=== PATIENT | male | born 1995 | race African-American/Black ===

== ENCOUNTER 2019-02-11 19:38 | Emergency (ER) | payer OTHER ==
[2019-02-11] MEDS ORDERED: DIPHTH/TETANUS/ACEL. PERTUSSIS IM ONLY ONE (20:00)
--- NOTE | 2019-02-11 20:06 | ER Report ---
History and Physical Time Seen By MD: 19:55 Hx. of Stated Complaint: CUT HAND ON GLASS HPI/ROS CHIEF COMPLAINT: Laceration HISTORY OF PRESENT ILLNESS: Right hand dominant male cut his right ulnar palm on broken glass just prior to arrival. He lost minimal blood at home, wrapped the laceration, and presents here. Pain is mild. There is no ongoing bleeding. He does not have a bleeding problem. He has no other injuries. This was not self- inflicted. REVIEW OF SYSTEMS: Respiratory: no difficulty breathing Cardiovascular: no chest pain Gastrointestinal: no vomiting Musculoskeletal: no other injuries Remainder of the 14 system rev: Yes Allergies: Coded Allergies: No Known Drug Allergies (Unverified , 02/11/19) Reviewed Nurses Notes: Yes Hx Substance Use Disorder: No Constitutional Vital Sign - Last 24 Hours 02/11/19 02/11/19 19:41 20:53 Temp 98.2 Pulse 85 85 Resp 16 16 B/P (MAP) 151/92 138/82 (100) Pulse Ox 92 92 O2 Delivery Room Air Room Air Physical Exam General Appearance: The patient is alert, has no immediate need for airway protection and no current signs of toxicity. Eyes: Pupils equal and round no injection. Respiratory: Chest is non tender, lungs are clear to auscultation. Cardiac: regular rate and rhythm no m/r/g Musculoskeletal: Extremities have full range of motion and are non tender. Nl distal sensation, 5/5 MS Skin: < 1cm laceration R ulnar palmar surface, no f/b, subq depth. DIFFERENTIAL DIAGNOSIS: After history and physical exam differential diagnosis was considered for laceration complicated by fb, bone, tendon, joint involvement. Medical Decision Making ED Course/Re-evaluation ED Course 23-year-old male presents with small laceration to right hand. No evidence of complication or foreign body. Laceration sutured adequately and he has good follow-up and strict return precautions. Procedure Procedure: Laceration repair. Verbal consent was obtained from the patient. The 1cm laceration on the location was anesthetized in the usual fashion. The wound was irrigated, draped and explored to its base with a gloved finger. There were no deep structures involved. No tendon injury was identified. The wound was repaired with 4 x 4-0 prolene. The wound repair was simple. The procedure was performed by myself. Decision to Disposition Date: Feb 11, 2019 Decision to Disposition Time: 20:35 Depart Departure Latest Vital Signs Vital Signs Date Time Temp Pulse Resp B/P (MAP) Pulse Ox O2 Delivery O2 Flow Rate FiO2 02/11/19 20:53 85 16 138/82 (100) 92 Room Air 02/11/19 19:41 98.2 Impression: Primary Impression: Hand laceration Additional Impression: Tinea versicolor Condition: Improved Disposition: HOME OR SELF-CARE Patient Instructions: Hand Laceration, Tinea Versicolor (ED) Additional Instructions: As we discussed, keep the hand bandaged for 2 days. After 2 days, remove the bandage, cleansed with water, and apply bacitracin 3 times daily. You may cover with a Band-Aid. Please follow up immediately for increased redness, swelling, pus, or any concerns. You should have sutures removed in 7-8 days. For skin rashes consistent with a common fungal infection. I recommend you start with a topical antifungal medication called terbinafine. This can be found in any pharmacy in the [id number] aisle. You can ask a pharmacist if you are having trouble locating it. Apply this to all the affected skin for one month, and follow-up with primary doctor for further evaluation if the rash does not improve. Problem Qualifiers Primary Impression: Hand laceration Encounter type: initial encounter Foreign body presence: without foreign body Laterality: right Qualified Codes: S61.411A - Laceration without foreign body of right hand, initial encounter LAURA MORRISON MD Feb 11, 2019 20:06
[2019-02-11 20:53] VITALS: BP 138/82
== END 2019-02-11 20:55 | disposition home or self-care (01) ==
LOC: ER 19:59
DX: S61.411A Laceration without foreign body of right hand, initial encounter (principal)
CPT/HCPCS: 90471; 90715; 99283